=== PATIENT | female | born 1955 | race Two or more races ===

== ENCOUNTER 2021-08-10 13:46 | Inpatient (IN) | payer OTHER ==
[~2021-08-10] VITALS: Ht 165.1 cm; Wt 86.2 kg
[2021-08-10] MEDS ORDERED: GLUMETZA1000 MG PO (14:15)
[2021-08-10] MEDS ORDERED: GABAPENTIN800 MG PO (14:15)
[2021-08-10] MEDS ORDERED: GLIMEPIRIDE4 MG PO (14:16)
--- NOTE | 2021-08-10 14:18 | NUR ---
SE RECIBE ALERTA Y ORIENTADA X3 CUAL REFIERE ABSESO EN LA ESPALDA ARRIBA, REFIERE DOLOR EN 10 QUE IRRADIA A PULOMONES, RORY, MICHELLE. SE GABRIELLE S/V Y SE UBICA.
--- NOTE | 2021-08-10 16:32 | NUR ---
SE ORIENTA SOBRE EL TX. SE EXTRAE MUESTRA DE HARRIET BAJO MEDIDAS ASEPTICAS SE ROTULA Y ENVIA AL LABORATORIO. SE CANALIZA Y ADMINISTRA MEDICAMENTO DYLON ORDEN MEDICA.
== END 2021-08-16 20:56 | disposition home or self-care (01) | DRG 603 ==
LOC: ER 13:46 → SURG 19:50 → SURH 08-12 14:40
PROVIDERS: ADMIT Internal Medicine; ATTEND Internal Medicine
DX: L03.312 Cellulitis of back [any part except buttock and flank] (principal); L02.212 Cutaneous abscess of back [any part, except buttock and flank]; D72.828 Other elevated white blood cell count; B96.89 Other specified bacterial agents as the cause of diseases classified elsewhere; I10 Essential (primary) hypertension; E11.65 Type 2 diabetes mellitus with hyperglycemia; Z79.4 Long term (current) use of insulin; Z20.822 Contact with and (suspected) exposure to COVID-19